=== PATIENT | male | born 1975 | race Caucasian/White ===

== ENCOUNTER 2017-01-15 00:26 | Emergency (ER) | payer OTHER ==
[2017-01-15 00:42] VITALS: TEMP 98.7
[2017-01-15] MEDS ORDERED: MORPHINE SULFATE 4 MG/ML SYRINGE IVP STA (01:39)
[2017-01-15] MEDS ORDERED: ONDANSETRON 4 MG/2 ML VIAL IVP STA (01:41)
--- NOTE | 2017-01-15 01:43 | ED ---
Fall HPI - General Chief Complaint: Fall Stated Complaint: fell down stairs, lost consciousness Time Seen by Provider: 01/15/17 01:14 Source: patient, RN notes reviewed Mode of arrival: ambulatory - History of Present Illness Initial Comments: patient is a 41-year-old male presents to the emergency room for evaluation of fall injury. Patient states he was holding a container and fell down a flight of steps. Patient states that he did black out for a few seconds. Patient states that he was holding a container and it ran into the left side of his abdomen. Patient states he's having a slight headache with a lump in the back of his head. Patient denies neck pain. Patient states he's having low back pain as well. Patient denies saddle anesthesia. Patient denies urinary or fecal incontinence. Patient denies paresthesias. Patient also states he's having left lower quadrant and left upper quadrant pain. Patient states the container ran into his abdomen. Patient states he is having 9 out of 10 pain. Patient states after the incident happened he threw up twice. Patient states he is feeling very nauseous right now with dizziness. Patient denies any other injuries during incident. - Related Data Home Medications Medication Instructions Recorded Confirmed Atenolol [Tenormin] 25 mg PO DAILY 01/15/17 01/15/17 Previous Rx's Medication Instructions Recorded Aspirin 81 mg PO DAILY #0 04/26/15 Atorvastatin Calcium [Lipitor] 40 mg PO HS #30 tab 04/26/15 HYDROcodone/APAP 5-325MG [Sedro [place] 1 tab PO Q6HR PRN #12 tab 01/15/17 5-325] Allergies Allergy/AdvReac Type Severity Reaction Status Date / Time ketorolac tromethamine Allergy Rash/Hives Verified 01/15/17 00:42 [From Toradol] Penicillins Allergy Unknown Verified 01/15/17 00:42 Childhood nitroglycerin AdvReac Unknown Verified 01/15/17 00:42 [From Nitro-Bid] Review of Systems ROS Statement: Those systems with pertinent positive or pertinent negative responses have been documented in the HPI. ROS Other: All systems not noted in ROS Statement are negative. Past Medical History Past Medical History: Hyperlipidemia, Myocardial Infarction (NE) Last Myocardial Infarction Date:: 1994 History of Any Multi-Drug Resistant Organisms: None Reported Past Surgical History: Heart Catheterization, Heart Catheterization With Stent Past Anesthesia/Blood Transfusion Reactions: No Reported Reaction Date of Last Stent Placement:: 1994 Past Psychological History: ADD/ADHD Smoking Status: Never smoker Past Alcohol Use History: None Reported Past Drug Use History: None Reported - Past Family History Daughter(s) Additional Family Medical History / Comment(s): adhd, appendectomy General Exam - General Exam Comments Initial Comments: Laying in exam room, c-collar on, appears uncomfortable secondary to discomfort Limitations: no limitations General appearance: alert Head exam: Present: other (small hematoma noted on right occipital scalp) Eye exam: Present: normal appearance, PERRL, EOMI Pupils: Present: normal accommodation ENT exam: Present: normal exam Neck exam: Absent: normal inspection (c-collar on) Respiratory exam: Present: normal lung sounds bilaterally. Absent: respiratory distress Cardiovascular Exam: Present: normal rhythm, tachycardia, normal heart sounds GI/Abdominal exam: Present: soft, tenderness (LUQ, LLQ), normal bowel sounds. Absent: distended, guarding, rebound, rigid Extremities exam: Present: normal inspection Back exam: Present: normal inspection Neurological exam: Present: alert, oriented X3, CN II-XII intact Psychiatric exam: Present: normal affect, normal mood Skin exam: Present: warm, dry, intact, normal color. Absent: rash Course Vital Signs 01/15/17 01/15/17 01/15/17 00:37 02:41 03:41 Temperature 98.7 F Pulse Rate 111 H 79 88 Respiratory 20 16 18 Rate Blood Pressure 161/104 145/102 165/102 O2 Sat by Pulse 97 Oximetry 01/15/17 04:42 Temperature Pulse Rate 70 Respiratory 16 Rate Blood Pressure 132/87 O2 Sat by Pulse Oximetry Medical Decision Making - Medical Decision Making Patient is a 41-year-old male presents emergency room for evaluation of fall injury. Patient has no neuro deficits. CT brain/C-spine negative for any acute findings. CT abdomen/pelvis negative for any acute findings. No bony abnormalities noted either. Patient will be sent home with pain medications and advised to follow-up with primary care provider. Patient states she understands everything that was discussed with him. Return parameters discussed. Case discussed Dr. Vitale. - Lab Data Result diagrams: 01/15/17 01:45 01/15/17 01:45 Lab Results 07/06/17 07/06/17 07/06/17 Range/Units 01:45 01:45 01:45 WBC 6.2 (3.8-10.6) k/uL RBC 5.17 (4.30-5.90) m/uL Hgb 16.8 (13.0-17.5) gm/dL Hct 47.0 (39.0-53.0) % MCV 90.9 (80.0-100.0) fL MCH 32.5 (25.0-35.0) pg MCHC 35.8 (31.0-37.0) g/dL RDW 13.6 (11.5-15.5) % Plt Count 296 (150-450) k/uL Neutrophils % 67 % Lymphocytes % 22 % Monocytes % 6 % Eosinophils % 2 % Basophils % 0 % Neutrophils # 4.2 (1.3-7.7) k/uL Lymphocytes # 1.4 (1.0-4.8) k/uL Monocytes # 0.4 (0-1.0) k/uL Eosinophils # 0.1 (0-0.7) k/uL Basophils # 0.0 (0-0.2) k/uL PT 10.2 (9.0-12.0) sec INR 1.0 (<1.1) Sodium 138 (137-145) mmol/L Potassium 4.5 (3.5-5.1) mmol/L Chloride 108 H (98-107) mmol/L Carbon Dioxide 21 L (22-30) mmol/L Anion Gap 9 mmol/L BUN 19 (9-20) mg/dL Creatinine 1.10 (0.66-1.25) mg/dL Est GFR (MDRD) Af Amer >60 (>60 ml/min/1.73 sqM) Est GFR (MDRD) Non-Af >60 (>60 ml/min/1.73 sqM) Glucose 96 (74-99) mg/dL Calcium 9.4 (8.4-10.2) mg/dL Total Bilirubin 0.4 (0.2-1.3) mg/dL AST 27 (17-59) U/L ALT 58 (21-72) U/L Alkaline Phosphatase 74 (38-126) U/L Total Protein 7.1 (6.3-8.2) g/dL Albumin 4.5 (3.5-5.0) g/dL - Radiology Data Radiology results: report reviewed, image reviewed Disposition Clinical Impression: Fall, Closed head injury, Abdominal contusion Disposition: HOME SELF-CARE Condition: Good Instructions: Concussion (ED), Abdominal Pain (ED) Additional Instructions: Please follow up with primary care provider in 1-2 days. Tylenol or Motrin as needed for pain. If any new symptom arises or symptoms worsen, return to ER as soon as possible. Prescriptions: HYDROcodone/APAP 5-325MG [Sedro [place] 5-325] 1 tab PO Q6HR PRN #12 tab PRN Reason: Pain Referrals: Nonstaff,Physician [Primary Care Provider] - 1-2 days Time of Disposition: 04:36
[2017-01-15 01:55] LABS: Basophils % (A) 0 %; CH 32.1; CHCM 35.4; Eosinophils # (A) 0.1 k/uL (0-0.7); Eosinophils % (A) 2 %; HDW 2.44; HGB 16.8 gm/dL (13.0-17.5); Luc # (Auto) 0.16; Luc % (Auto) 3; Lymphocytes # (A) 1.4 k/uL (1.0-4.8); Lymphocytes % (A) 22 %; MCH 32.5 pg (25.0-35.0); MCHC 35.8 g/dL (31.0-37.0); MCV 90.9 fL (80.0-100.0); Mean Platelet Volume 6.6; Monocytes # (A) 0.4 k/uL (0-1.0); Monocytes % (A) 6 %; Neutrophils # (A) 4.2 k/uL (1.3-7.7); Neutrophils % (A) 67 %; RBC 5.17 m/uL (4.30-5.90); RDW 13.6 % (11.5-15.5); WBC 6.2 k/uL (3.8-10.6); WBC (Perox) 5.97
[2017-01-15 02:01] LABS: Prothrombin Time 10.2 sec (9.0-12.0)
[2017-01-15] MEDS ORDERED: RX INFO: IV CONTRAST WAS GIVEN 1 EACH MISC MISCELLANE PRN (02:03)
[2017-01-15 02:09] LABS: ALT 58 U/L (21-72); AST 27 U/L (17-59); Alkaline Phosphatase 74 U/L (38-126); Anion Gap 9 mmol/L; Blood Urea Nitrogen 19 mg/dL (9-20); Calcium 9.4 mg/dL (8.4-10.2); Carbon Dioxide 21 mmol/L (22-30); Chloride 108 mmol/L (98-107); Glucose 96 mg/dL (74-99); Non-African American GFR(MDRD) >60 (>60 ml/min/1.73 sqM); Potassium 4.5 mmol/L (3.5-5.1); Sodium 138 mmol/L (137-145); Total Bilirubin 0.4 mg/dL (0.2-1.3); Total Protein 7.1 g/dL (6.3-8.2)
--- NOTE | 2017-01-15 02:57 | XR ---
EXAM: XR Abdomen Complete, 2 or More Views CLINICAL HISTORY: Reason: Pain TECHNIQUE: Frontal view of the abdomen/pelvis with upright view of the abdomen. COMPARISON: 05/13/2015 FINDINGS: Intraperitoneal space: No pneumatosis or pneumoperitoneum. Gastrointestinal tract: Gas and stool are seen in the nondilated colon. There is a paucity of gas in the central and left abdomen. Bones/joints: No acute osseous abnormality. Vasculature: Pelvic calcifications are favored to be vascular. Other findings: Postsurgical changes are present in the right lower quadrant. IMPRESSION: Nonobstructive bowel gas pattern. No pneumatosis or pneumoperitoneum.
--- NOTE | 2017-01-15 02:58 | XR ---
EXAM: XR Chest, 2 Views CLINICAL HISTORY: Pain TECHNIQUE: Frontal and lateral views of the chest. COMPARISON: 04/22/2015 FINDINGS: Lungs: Unremarkable. No consolidation. Pleural space: Unremarkable. No pneumothorax. Heart: Unremarkable. No cardiomegaly. Mediastinum: Unremarkable. Bones/joints: No acute osseous abnormality. IMPRESSION: No acute cardiopulmonary process.
--- NOTE | 2017-01-15 04:10 | CT ---
EXAM: CT Head Without Intravenous Contrast CLINICAL HISTORY: Pain TECHNIQUE: Axial computed tomography images of the head/brain without intravenous contrast. CTDI is 57.40 mGy and DLP is 1047.10 mGy-cm. This CT exam was performed using one or more of the following dose reduction techniques: automated exposure control, adjustment of the mA and/or kV according to patient size, and/or use of iterative reconstruction technique. COMPARISON: No relevant prior studies available. FINDINGS: Brain: Unremarkable. No acute hemorrhage. Normal webster-white differentiation. No significant mass effect. Ventricles: Unremarkable. No ventriculomegaly. Bones/joints: Unremarkable. No acute fracture. Soft tissues: Unremarkable. Sinuses: Unremarkable as visualized. No acute sinusitis. Mastoid air cells: Unremarkable. IMPRESSION: No acute intracranial abnormality. EXAM: CT Cervical Spine Without Intravenous Contrast CLINICAL HISTORY: Pain TECHNIQUE: Axial computed tomography images of the cervical spine without intravenous contrast. CTDI is 57.40 mGy and DLP is 1047.10 mGy-cm. This CT exam was performed using one or more of the following dose reduction techniques: automated exposure control, adjustment of the mA and/or kV according to patient size, and/or use of iterative reconstruction technique. COMPARISON: No relevant prior studies available. FINDINGS: Vertebrae: No acute fracture or malalignment. Straightening of the normal cervical lordosis. Discs/spinal canal/neural foramina: Mild degenerative changes of the cervical spine with small osteophytes and mild uncovertebral spurring. No significant osseous spinal or foraminal stenosis. Soft tissues: Unremarkable. Lung apices: Unremarkable as visualized. IMPRESSION: No acute findings.
--- NOTE | 2017-01-15 04:15 | CT ---
EXAM: CT Abdomen and Pelvis With Intravenous Contrast CLINICAL HISTORY: Reason: Pain TECHNIQUE: Axial computed tomography images of the abdomen and pelvis with intravenous contrast. CTDI is 9.20, 9.30 mGy and DLP is 750.20 mGy-cm. This CT exam was performed using one or more of the following dose reduction techniques: automated exposure control, adjustment of the mA and/or kV according to patient size, and/or use of iterative reconstruction technique. COMPARISON: No relevant prior studies available. FINDINGS: Lower thorax: Mild bilateral dependent densities are compatible with atelectasis. Small hiatal hernia. ABDOMEN: Liver: Unremarkable. Gallbladder and bile ducts: Unremarkable. No calcified stones. Pancreas: Unremarkable. Spleen: Unremarkable. Adrenals: Unremarkable. Kidneys and ureters: 4 mm nonobstructing right renal calculus. No hydroureteronephrosis. Hepatomegaly. No focal hepatic lesions. Stomach and bowel: Unremarkable. Bowel is nondilated. Appendix: No findings to suggest acute appendicitis. PELVIS: Bladder: Unremarkable. Reproductive: Unremarkable as visualized. ABDOMEN and PELVIS: Intraperitoneal space: Unremarkable. No free air. Bones/joints: No acute osseous abnormality. Soft tissues: Unremarkable. Vasculature: Unremarkable. No abdominal aortic aneurysm. Lymph nodes: Unremarkable. No enlarged lymph nodes. IMPRESSION: No acute findings.
[2017-01-15 04:43] VITALS: BP 132/87; PULSE 70; RESP 16
== END 2017-01-15 04:42 | disposition home or self-care (01) ==
LOC: EC 00:26
DX: S00.03XA Contusion of scalp, initial encounter (principal); S30.1XXA Contusion of abdominal wall, initial encounter; R00.0 Tachycardia, unspecified; R11.0 Nausea; M54.5 Low back pain; I25.2 Old myocardial infarction; Z79.899 Other long term (current) drug therapy; Z88.0 Allergy status to penicillin; Z88.6 Allergy status to analgesic agent; Z88.8 Allergy status to other drugs, medicaments and biological substances; W10.8XXA Fall (on) (from) other stairs and steps, initial encounter; Y93.89 Activity, other specified
CPT/HCPCS: 36415; 80053; 85025; 85610; 71020; 74020; 72125; 70450; 74177; 99284; 96374; 96375; J2270; J2405; Q9967